=== PATIENT | female | born 1975 | race Two or more races ===

== ENCOUNTER 2025-02-11 15:45 | Emergency (ER) | payer MEDICAID, OTHER ==
[~2025-02-11] VITALS: Ht 175.3 cm; Wt 68.3 kg
--- NOTE | 2025-02-11 16:07 | ECG ---
[facility] Test Date: 2025-02-11 Test Time: 16:00:38 Pat Name: ROSE BUCKNER Department: ED Room: Gender: F Medical Affairs Leader: AM : 1975 Requested By: EMERGENCY EMERGENCY Order Number: [id number] Reading MD: Alessandro Whelan Measurements Intervals [place] Rate: 98 P: 73 AK: 140 QRS: 79 QRSD: 80 T: 46 QT: 338 QTc: 432 Interpretive Statements Sinus rhythm Biatrial enlargement Minimal ST depression, inferior leads Electronically Signed On 02-13-2025 20:36:34 PDT by Alessandro Whelan Please click the below link to view image of tracing.
--- NOTE | 2025-02-11 16:27 | ED.PDOC ---
Back pain HPI HPI Comments 49 y/o F, with no prior medical history presents to the ED for CC of chest wall injury. Patient states, she has been experiencing bilateral cervical neck pain that radiates to her chest sudden onset, yesterday (02/10/25). Patient further comments, pain to worsen with inspiration. Patient denies shortness of breath, numbness, tingling, headache, dizziness, lifting, bending, or fall. No other symptoms or modifying factors are present at this time. Chief Complaint: Chest Wall Injury Time Seen by MD: 16:20 Reviewed Notes: Nurses Notes, Medications, Allergies Allergies: Coded Allergies: NO KNOWN ALLERGIES (Unverified , 02/11/25) Information Source: Patient Mode of Arrival: Ambulatory Timing: Days Duration: Since onset Location of Back pain: (B) Cervical, Other (Wrapping around bilaterally to the chest) Severity: Moderate Prehospital treatment: None Onset: Spontaneous History of: None Modifying Factors: Nothing Associated signs and symptoms: None Past Medical History PAST MEDICAL HISTORY: Denies Surgical History: Denies all surgeries PIGMENT WEIGHER History: Denies all PIGMENT WEIGHER Hx Family History Family History: Unknown Social History Smoker: Non-Smoker Alcohol: Denies ETOH Use Drugs: Denies Drug Use Lives In: Home Constitutional: denies: chills, diaphoresis, fatigue, fever, malaise, sweats, weakness, others EENTM: denies: blurred vision, double vision, ear bleeding, ear discharge, ear drainage, ear pain, ear ringing, eye pain, eye redness, hearing loss, mouth pain, mouth swelling, nasal discharge, nose bleeding, nose congestion, nose pain , photophobia, tearing, throat pain, throat swelling, voice changes, others Respiratory: denies: cough, hemoptysis, orthopnea, SOB at rest, shortness of breath, SOB with excertion, stridor, wheezing, others Cardiovascular: reports: chest pain; denies: dizzy spells, diaphoresis, Dyspnea on exertion, edema, irregular heart beat, left arm pain, lightheadedness, palpitations, PND, syncope, others Gastrointestinal: denies: abdomen distended, abdominal pain, blood streaked bowels, constipated, diarrhea, dysphagia, difficulty swallowing, hematemesis, melena, nausea, poor appetite, poor fluid intake, rectal bleeding, rectal pain, vomiting, others Genitourinary: denies: abnormal vagina bleeding, burning, dyspareunia, dysuria, flank pain, frequency, hematuria, incontinence, pain, , vagina discharge, urgency, others Neurological: denies: dizziness, fainting, headache, left sided numbness, left sided weakness, numbness, paresthesia, pre-existing deficit, right sided numbness, right sided weakness, seizure, speech problems, tingling, tremors, weakness, others Musculoskeletal: reports: gout, neck pain; denies: back pain, joint pain, joint swelling, muscle pain, muscle stiffness, others Integumetry: denies: bruises, change in color, change in hair/nails, dryness, laceration, lesions, lumps, rash, wounds, others Allergic/Immunocompromised: denies: Difficulty Healing, Frequent Infections, Hives, Itching, others Hematologic/Lymphatic: denies: anemia, blood clots, easy bleeding, easy bruising, swollen glands, others Endocrine: denies: excessive hunger, excessive sweating, excessive thirst, excessive urination, flushing, intolerance to cold, intolerance to heat, unexplained weight gain, unexplained weight loss, others Psychiatric: denies: anxiety, bipolar disorder, depression, hopeless, panic disorder, schizophrenia, sleepless, suicidal, others All Other Systems: Reviewed and Negative Physical Exam General Appearance: Moderate Distress (Moderate distress due to neck and chest pain concerns.), Obese HEENT: Normal ENT Inspection, Pharynx Normal, TMs Normal Neck: Other (Diffuse bilateral cervical spine tenderness to palpation throug hout. Moderate hypertonicity appreciated. No signs of trauma. No step-offs noted. Patient states pain radiates bilaterally over the trapezius into the chest.) Respiratory: Lungs Clear, No Accessory Muscle Use, No Respiratory Distress, Normal Breath Sounds, Other (Generalized tenderness to palpation from the bilateral trapezius into the pectoralis muscle. No signs of trauma. No crepitus.) Cardiovascular: No Edema, No JVD, No Murmur, No Gallop, Normal Peripheral Pulses, Regular Rate/Rhythm Breast Exam: Deferred Gastrointestinal: No Organomegaly, Non Tender, No Pulsatile Mass, Normal Bowel Sounds, Soft Genitalia: Deferred Pelvic: Deferred Rectal: Deferred Extremities: No calf tenderness, Normal capillary refill, No pedal edema Neurologic: Alert Cerebellar Function: NOT DONE Reflexes: NOT DONE Skin: Dry, Normal Color, Warm Lymphatic: No Adenopathy Was a procedure done? Was a procedure done?: No Back Pain Differential Dx Differential Diagnosis: Musculoskeletal Pain, Strain, Other (Cervical muscle spasm, sepsis, electrolyte abnormality) X-Ray, Labs, Meds, VS Vital Signs Date Time Temp Pulse Resp B/P (MAP) Pulse Ox O2 Delivery O2 Flow Rate FiO2 02/11/25 17:03 97.7 78 16 91/61 (71) 98 97.7 02/11/25 16:00 98 02/11/25 15:49 98.0 102 16 119/72 98 98.0 Lab Test 02/11/25 18:06 02/11/25 17:16 Range/Units Troponin I High Sensitivity < 3 L < 3 L </=34 ng/L White Blood Count 11.1 H 4.4-10.8 10^3/uL Red Blood Count 4.87 4.0-5.20 10^6/uL Hemoglobin 14.4 12.2-16.2 g/dL Hematocrit 42.3 36.0-46.0 % Mean Corpuscular Volume 86.9 80.0-100.0 fL Mean Corpuscular Hemoglobin 29.6 28.0-32.0 pg Mean Corpuscular Hemoglobin Concent 34.1 32.0-36.0 g/dL Red Cell Distribution Width 13.6 11.8-14.3 % Platelet Count 350 140-450 10^3/uL Mean Platelet Volume 6.9 6.9-10.8 fL Neutrophils (%) (Auto) 71.9 37.0-80.0 % Lymphocytes (%) (Auto) 19.3 10.0-50.0 % Monocytes (%) (Auto) 5.9 0.0-12.0 % Eosinophils (%) (Auto) 2.0 0.0-7.0 % Basophils (%) (Auto) 0.9 0.0-2.0 % Neutrophils # (Auto) 8.0 1.6-8.6 10 ^3/uL Lymphocytes # (Auto) 2.1 0.4-5.4 10 ^3/uL Monocytes # (Auto) 0.7 0-1.3 10 ^3/uL Eosinophils # (Auto) 0.2 0-0.8 10 ^3/uL Basophils # (Auto) 0.1 0-0.2 10 ^3/uL Nucleated Red Blood Cells 0.0 % Sodium Level 139 136-145 mmol/L Potassium Level 3.9 3.5-5.1 mmol/L Chloride Level 102 98-107 mmol/L Carbon Dioxide Level 26 20-31 mmol/L Anion Gap 11 5-15 Blood Urea Nitrogen 8 L 9-23 mg/dL Creatinine 0.76 0.550-1.02 mg/dL Glomerular Filtration Rate Calc 95 >90 mL/min BUN/Creatinine Ratio 10.5 10.0-20.0 Serum Glucose 100 74-106 mg/dL Calcium Level 9.5 8.7-10.4 mg/dL B-Type Natriuretic Peptide 11.59 0-100 pg/mL Current Medications Medications (Trade) Dose Ordered Sig/Juan F Route Start Time Stop Time Status Last Admin Ketorolac Tromethamine (Toradol Injection) 30 mg ONCE ONCE IM 02/11/25 16:30 02/11/25 16:31 DC 02/11/25 17:08 Dexamethasone Sodium Phosphate (Decadron Injection) 10 mg ONCE ONCE IM 02/11/25 16:30 02/11/25 16:31 DC 02/11/25 17:08 [place] [id number] Ph: [phone] DIAGNOSTIC IMAGING Diagnostic Imaging Report : [id number] Signed PATIENT: ROSE BUCKNER ACCT: [id number] UNIT: [id number] : 1975 LOC: ER ROOM / BED: / AGE / SEX: 49 / F ADM STATUS: REG ER SERVICE 1622 ORDERING PHYSICIAN: JENNI BAILEY PAC PROCEDURE(s): CERV2 - CERVICAL SPINE 3V REASON: Cervical radiculopathy ORDER NUMBER(s): [id number], ACCESSION NUMBER(s): [id number] CLINICAL INDICATION: Cervical radiculopathy TECHNIQUE: 4 radiographic views of the cervical spine were obtained. Comparison: None FINDINGS/IMPRESSION: Straightening of the normal cervical lordotic curve is noted. There are no compressed vertebra. Prevertebral soft tissues are within normal limits. No radiopaque foreign bodies. ATED BY: DARRYN GARCIA Jr. DO DICTATED DATE/TIME: 02/11/251699 SIGNED BY: DARRYN GARCIA Jr., DO SIGNED DATE/TIME: 02/11/251699 CC: [address] [address] Ph: [phone] DIAGNOSTIC IMAGING Diagnostic Imaging Report : [id number] Signed PATIENT: ROSE BUCKNER ACCT: [id number] UNIT: [id number] : 1975 LOC: ER ROOM / BED: / AGE / SEX: 49 / F ADM STATUS: REG ER SERVICE 21 ORDERING PHYSICIAN: JENNI BAILEY PAC PROCEDURE(s): CXRP - CHEST PORTABLE REASON: Chest pain ORDER NUMBER(s): [id number], ACCESSION NUMBER(s): [id number] EXAM: XY CHEST PORTABLE HISTORY: Chest pain COMPARISON: None TECHNIQUE: PA upright view of the chest was performed. FINDINGS: No pneumothorax, consolidative infiltrates, or pulmonary edema. The heart is not enlarged. There is [id number] thoracic spondylosis and slight thoracic dextroscoliosis. No fractures are identified about the bony thorax. IMPRESSION: No acute intrathoracic process. ATED BY: PARAG PARRISH MD DICTATED DATE/TIME: 02/11/251658 SIGNED BY: PARAG PARRISH MD SIGNED DATE/TIME: 02/11/251658 CC: X-Ray, Labs, Meds, VS Comment All studies performed the ED were evaluated by me personally. Serum studies were unremarkable for any systemic concerns. Cervical spine x-ray shows some disc degeneration that could be the culprit for the radiculopathy bilaterally. Chest x-ray was unremarkable for any consolidation or signs of intrapulmonary concerns. Time of 1ST Reevaluation: 19:35 Reevaluation 1ST: Improved Consultation: PCP Patient Education/Counseling: Diagnosis, Treatment Family Education/Counseling: Diagnosis, Treatment, No Family Present SEPSIS Sepsis Screen Date sepsis recognized/suspect: Feb 11, 2025 Time Sepsis recognized/suspect: 1551 Recent Procedure: No On Antibiotic Therapy: No Respiratory Rate >20: No Heart Rate >90: Yes Temp<36 C (96.8 F) or >38.3 C: No SBP <90 or MAP <65 mmHG: No New Acute Mental Status Change: No Is the patient on CPAP, BIPAP,: No Physician Orders Electrocardigram (02/11/25 16:05) Cervical Spine 3v (02/11/25 16:22) Chest Portable (02/11/25 16:22) Troponin-I Hs (02/11/25 20:01) Vital Signs Date Time Temp Pulse Resp B/P (MAP) Pulse Ox O2 Delivery O2 Flow Rate FiO2 02/11/25 17:03 97.7 78 16 91/61 (71) 98 97.7 02/11/25 16:00 98 02/11/25 15:49 98.0 102 16 119/72 98 98.0 Laboratory Tests Test 02/11/25 17:16 White Blood Count 11.1 10^3/uL (4.4-10.8) H Medications Medications Dose Ordered Sig/Juan F Route Start Time Stop Time Status Last Admin Dose Admin Dexamethasone Sodium Phosphate 10 mg ONCE ONCE IM 02/11/25 16:30 02/11/25 16:31 DC 02/11/25 17:08 Ketorolac Tromethamine 30 mg ONCE ONCE IM 02/11/25 16:30 02/11/25 16:31 DC 02/11/25 17:08 Departure 1 Departure Time of Disposition: 19:35 Impression: Primary Impression: Cervical paraspinal muscle spasm Disposition: HOME / SELF CARE / HOMELESS Condition: Stable Additional Instructions: Advised pain medication as needed as well as ice therapy. e-Prescriptions Acetaminophen (Acetaminophen) 500 Mg Tab 500 MG PO Q4HP PRN, #30 TAB Prov: JENNI BAILEY PAC 02/11/25 Cyclobenzaprine Hcl (Cyclobenzaprine Hcl) 10 Mg Tab 10 MG PO Q8HP PRN, #15 TAB Prov: JENNI BAILEY PAC 02/11/25 Ibuprofen Micronized (Ibuprofen) 800 Mg Tab 800 MG PO Q8HP PRN, #20 TAB Prov: JENNI BAILEY PAC 02/11/25 Discharged With: Self, Friend Critical Care Note Critical Care Time?: No Stability Stability form required: No Heart Score Heart Score: Heart Score Response (Comments) Value History N/A 0 EKG N/A 0 Age N/A 0 Risk Factors N/A 0 Troponin N/A 0 Total 0 I personally scribed for JENNI BAILEY PAC ([email or web address]) on 02/11/25 at 16:27. Electronically submitted by Altagracia Rivers ([email or web address]). I personally scribed for JENNI BAILEY PAC ([email or web address]) on 02/11/25 at 17:14. Electronically submitted by Altagracia Rivers ([email or web address]). I personally scribed for JENNI BAILEY PAC ([email or web address]) on 02/11/25 at 17:15. Electronically submitted by Altagracia Rivers ([email or web address]). JENNI BAILEY PAC Feb 11, 2025 16:27
--- NOTE | 2025-02-11 17:01 | DVH ---
EXAM: XY CHEST PORTABLE HISTORY: Chest pain COMPARISON: None TECHNIQUE: PA upright view of the chest was performed. FINDINGS: No pneumothorax, consolidative infiltrates, or pulmonary edema. The heart is not enlarged. There is m [id number]-it-uayiluyb thoracic spondylosis and slight thoracic dextroscoliosis. No fractures are identified about the bony thorax. IMPRESSION: No acute intrathoracic process.
--- NOTE | 2025-02-11 17:03 | DVH ---
CLINICAL INDICATION: Cervical radiculopathy TECHNIQUE: 4 radiographic views of the cervical spine were obtained. Comparison: None FINDINGS/IMPRESSION: Straightening of the normal cervical lordotic curve is noted. There are no compressed vertebra. Prevertebral soft tissues are within normal limits. No radiopaque foreign bodies.
[2025-02-11] MEDS: KETOROLAC TROMETH 60MG/2ML VIAL IM ONE (17:08)
[2025-02-11 17:34] LABS: Hematocrit 42.3 % (36.0-46.0); Hemoglobin 14.4 g/dL (12.2-16.2); Mean Corpuscular Hemoglobin 29.6 pg (28.0-32.0); Mean Corpuscular Volume 86.9 fL (80.0-100.0); Nucleated Red Blood Cells % 0.0 %
[2025-02-11 17:43] LABS: Chloride 102 mmol/L (98-107); Potassium 3.9 mmol/L (3.5-5.1); Sodium 139 mmol/L (136-145)
[2025-02-11 17:44] LABS: Anion Gap 11 (5-15); Calcium 9.5 mg/dL (8.7-10.4); Carbon Dioxide 26 mmol/L (20-31)
[2025-02-11 17:49] LABS: BUN/Creatinine Ratio 10.5 (10.0-20.0); Glucose 100 mg/dL (74-106)
[2025-02-11 17:54] LABS: Blood Urea Nitrogen 8 mg/dL (9-23)
[2025-02-11] MEDS ORDERED: IBUP-1455 PO (19:36)
[2025-02-11] MEDS ORDERED: ACET500T58 PO (19:36)
[2025-02-11] MEDS ORDERED: CYCL-839 PO (19:36)
[2025-02-11 19:49] VITALS: BP 110/61; PULSE 72; RESP 16; TEMP 97.6
[2025-02-11 19:54] VITALS: O2SAT 99
== END 2025-02-11 19:54 | disposition home or self-care (01) ==
LOC: ER 15:53
DX: M62.838 Other muscle spasm (principal)
CPT/HCPCS: 36415; 71045; 72040; 80048; 83880; 84484; 85025; 93005; 96372; 99285; J1100; J1885

== ENCOUNTER 2025-04-20 13:08 | Emergency (ER) | payer MEDICAID ==
[~2025-04-20] VITALS: Ht 160 cm; Wt 81.8 kg
[~2025-04-20 13:08] MED LIST: ACET500T58 PO; CYCL-839 PO; IBUP-1455 PO
[2025-04-20 14:02] VITALS: BP 138/62; PULSE 85; RESP 16; TEMP 98.3; O2SAT 98
[2025-04-20] MEDS ORDERED: METH-1181 PO (14:17)
--- NOTE | 2025-04-20 14:17 | ED.PDOC ---
Back pain HPI HPI Comments The patient presents for evaluation and management of pain to the cervical and bilateral supraspinatus muscles. Onset: 1 day ago No trauma Hx of chx neck and shoulder pains for 2 years. underwent an mri from PCP 6 months ago and results showed mild DJD Taking IBU prn Denies fevers chills night sweats nausea vomiting redness around the shoulder Denies previous surgeries to the shoulder or significant injury Numbness/tingling down the arm Denies changes, shortness of breath Chief Complaint: Neck Pain Time Seen by MD: 13:27 Reviewed Notes: Nurses Notes, Medications, Allergies Allergies: Coded Allergies: NO KNOWN ALLERGIES (Unverified , 02/11/25) Home Meds Active Scripts Acetaminophen (Acetaminophen) 500 Mg Tab, 500 MG PO Q4HP PRN, #30 TAB Prov:JENNI BAILEY [facility] 02/11/25 Cyclobenzaprine Hcl (Cyclobenzaprine Hcl) 10 Mg Tab, 10 MG PO Q8HP PRN, #15 TAB Prov:JENNI BAILYE [facility] 02/11/25 Ibuprofen Micronized (Ibuprofen) 800 Mg Tab, 800 MG PO Q8HP PRN, #20 TAB Prov:JENNI BAILEY [facility] 02/11/25 Information Source: Patient Mode of Arrival: Ambulatory Past Medical History PAST MEDICAL HISTORY: Denies Surgical History: Denies all surgeries GREASER OPERATOR History: Denies all GREASER OPERATOR Hx Family History Family History: Unknown Social History Smoker: Non-Smoker Alcohol: Denies ETOH Use Drugs: Denies Drug Use Lives In: Home All Other Systems: Reviewed and Negative (PER HPI) Physical Exam General Appearance: No Apparent Distress, Normal HEENT: Normal ENT Inspection, Pharynx Normal, TMs Normal, Other (No cervical or shoulder deformity. No midline TTP. No bony step-offs. Neurovascularly intact. The bilateral upper extremity 5/5) Neck: Full Range of Motion, Non-Tender, Normal, Normal Inspection Respiratory: Chest Non-Tender, Lungs Clear, No Accessory Muscle Use, No Respiratory Distress, Normal Breath Sounds Cardiovascular: No Edema, No JVD, No Murmur, No Gallop, Normal Peripheral Pulses, Regular Rate/Rhythm Breast Exam: Deferred Gastrointestinal: No Organomegaly, Non Tender, No Pulsatile Mass, Normal Bowel Sounds, Soft Genitalia: Deferred Pelvic: Deferred Rectal: Deferred Extremities: No calf tenderness, Normal capillary refill, Normal inspection, Normal range of motion, Non-tender, No pedal edema Musculoskeletal : Apperance: Normal Neurologic: Alert, hide worker II-XII nml as Tested, No Motor Deficits, Normal Affect, Normal Mood, No Sensory Deficits Cerebellar Function: Normal Reflexes: Normal Skin: Dry, Normal Color, Warm Lymphatic: No Adenopathy Was a procedure done? Was a procedure done?: No Back Pain Differential Dx Differential Diagnosis: Other X-Ray, Labs, Meds, VS Vital Signs Date Time Temp Pulse Resp B/P (MAP) Pulse Ox O2 Delivery O2 Flow Rate FiO2 04/20/25 14:02 85 16 98 Room Air 04/20/25 14:02 98.3 85 16 138/62 (87) 98 98.3 04/20/25 13:10 97.3 83 16 138/62 98 97.3 X-Ray, Labs, Meds, VS Comment NIH: 0 Denies numbness and weakness. ED Workup: Defer C-Spine imaging given negative by NEXUS criteria Patient appears to be low risk for complications or other emergent conditions such as anginal equivalent, salvador cervical instability, arterial dissection, osteomyelitis, epidural abscess, central cord syndrome, c-spine fracture, CVA, other spinal emergencies Rx: NSAIDs, outpatient physical therapy evaluation and recommendation for home exercises in the interim Disposition: Discharge. The patient has been given strict return precautions and understands the need to follow up within 48 hours with their primary care provider Supportive care advised (rest, ice, heat, NSAIDs, stretching exercises) Massage muscles with cold pack or ice for 20 minutes 4 times per day. Usually most useful if there is swelling during the first 48 hours Heating pad on the most painful area for 20 minutes to relieve muscle spasm Sleep and the most comfortable sleeping position (usually on the side with knees bent) Light stretching, no strenuous activity, avoid frequent bending, avoid carrying heavy objects Discussed possible benefits of yoga and acupuncture On reevaluation, patient had symptomatic improvement. Patient is stable for discharge at this time. External notes reviewed. Test results and diagnostic imaging interpreted. All diagnostic findings, discharge care, education and instructions provided Follow-up with PCP in 2 to 3 days Patient verbalized understanding and agreed to treatment plan Vital signs stable, afebrile, no acute distress noted Patient ambulatory with strong steady gait Advised to return precautions for any new or worsening symptoms, return to ER immediately for re-evaluation Patient is aware that the purpose of this visit was for an acute medical emergency requiring emergent stabilization. Chronic conditions, including malignancies have not been ruled out. Patient is instructed to follow up with PCP as directed and discharge instructions for continued care and workup. If unable to arrange follow-up, patient is to return to the emergency department for reassessment. Patient (parent or legal guardian if applicable) was given verbal and written discharge instructions and acknowledges understanding. Time of 1ST Reevaluation: 14:15 Reevaluation 1ST: Improved Patient Education/Counseling: Diagnosis, Treatment Family Education/Counseling: Diagnosis, Treatment SEPSIS Sepsis Screen Date sepsis recognized/suspect: Apr 20, 2025 Time Sepsis recognized/suspect: 1313 Recent Procedure: No On Antibiotic Therapy: No Respiratory Rate >20: No Heart Rate >90: No Temp<36 C (96.8 F) or >38.3 C: No SBP <90 or MAP <65 mmHG: No New Acute Mental Status Change: No Is the patient on CPAP, BIPAP,: No Vital Signs Date Time Temp Pulse Resp B/P (MAP) Pulse Ox O2 Delivery O2 Flow Rate FiO2 04/20/25 14:02 85 16 98 Room Air 04/20/25 14:02 98.3 85 16 138/62 (87) 98 98.3 04/20/25 13:10 97.3 83 16 138/62 98 97.3 Departure 1 Departure Time of Disposition: 14:45 Impression: Primary Impression: Musculoskeletal pain Disposition: 01 HOME / SELF CARE / HOMELESS Condition: Stable e-Prescriptions Methocarbamol (Methocarbamol) 500 Mg Tab 500 MG PO Q8HP PRN for 10 Days, #30 TAB 0 Refills Prov: DILMA LADD NP 04/20/25 Discharged With: Self Critical Care Note Critical Care Time?: No Stability Stability form required: No Heart Score Heart Score: Heart Score Response (Comments) Value History N/A 0 EKG N/A 0 Age N/A 0 Risk Factors N/A 0 Troponin N/A 0 Total 0 DILMA LADD NP Apr 20, 2025 14:17
[2025-04-20] MEDS: KETOROLAC TROMETH 60MG/2ML VIAL IM ONE (14:18)
[2025-04-20] MEDS: methylPREDNISolone SOD SUCC 125 MG/2 ML VL IM ONE (14:18)
== END 2025-04-20 14:30 | disposition home or self-care (01) ==
LOC: ER 13:08
DX: M54.2 Cervicalgia (principal); Z79.899 Other long term (current) drug therapy
CPT/HCPCS: 96372; 99284; J1885; J2919